=== PATIENT | female | born 1985 | race Caucasian/White ===

== ENCOUNTER → 2018-06-09 | Outpatient (REF) | payer BC ==
[~2018-06-09] MED LIST: FERR325T3 PO; IBUP80TA PO; LEVO25TA5 PO; PERCOCET PO; VITAPRTA PO
[2018-06-13 14:26] LABS: HPV HYBRID CAPTURE II Negative (Negative)
== END ==
LOC: M LAB REF 13:24
PROVIDERS: ATTEND Advanced Practice Midwife
DX: Z12.4 Encounter for screening for malignant neoplasm of cervix (principal)
CPT/HCPCS: 87624; G0123

== ENCOUNTER → 2018-06-21 | Outpatient (CLI) | payer BC, OTHER ==
--- NOTE | 2018-06-21 08:06 | REP ---
Transvaginal pelvic sonography: History: Infertility. Findings: Uterine dimensions are 7.5 x 4.2 x 4.3 cm. Uterus is somewhat retroverted. Endometrial echo 0.9 cm thick. A vaginal images demonstrate a hyperechoic area in the endometrium measuring 0.8 cm in greatest diameter raising question of endometrial polyp. No myometrial mass is seen. There is mild amount of fluid in the cul-de-sac. Right ovary measures 5.2 x 2.4 x 2.4 cm in overall dimension. There are no follicles in the right ovary measuring greater than a centimeter. There are 16 follicles in the right ovary ranging in size from 0.2-0.9 cm. The overall dimensions of the left ovary today are 5.3 x 1.8 x 2.2 cm. There are no follicles in the left ovary greater than 1 cm. There are 22 follicles in the left ovary ranging in size from 0.3-0.7 cm. Impression: Heterogeneous endometrium as above question endometrial nodule or polyp. Small amount of cul-de-sac fluid. Ovaries as above. Electronically Signed by Ron Guallpa MD 06/21/2018 07:59 A
[2018-06-21 10:16] LABS: ESTRADIOL 32.8 PG/ML; PROGESTERONE 0.4 NG/ML
== END ==
LOC: M RAD 06:41
PROVIDERS: ATTEND Obstetrics & Gynecology Reproductive Endocrinology
DX: E28.9 Ovarian dysfunction, unspecified (principal)

== ENCOUNTER → 2018-06-23 | Outpatient (CLI) | payer BC, OTHER ==
[2018-06-23 07:24] LABS: HCG, SERUM QUANTITATIVE < 1.0 MIU/ML
--- NOTE | 2018-06-23 07:52 | REP ---
Obstetric sonography: History: Infertility. Findings: Transvaginal pelvic ultrasound demonstrates a normal size retroverted uterus with dimensions of 6.9 x 4.3 x 4.8 cm. The endometrial stripe is 0.8 cm in thickness. There is a trace of fluid the cul-de-sac. No focal uterine mass is seen. The right ovary measures 5.4 x 2.5 x 3.0 cm. There is a 1.3 x 0.8 cm follicle in the right ovary and there are are 37 follicles in the right ovary ranging in size from 0.25 to 0.99 cm. Overall dimensions of the left ovary are 5.0 x 1.9 x 2.3 cm. There is one follicle over a centimeter in the left ovary measuring 1.0 x 0.5 cm. There are 33 follicles in the left ovary ranging in size from 0.22 to 0.80 cm. Electronically Signed by Ron Guallpa MD 06/23/2018 07:43 A
[2018-06-23 10:03] LABS: PROGESTERONE 0.21 NG/ML
[2018-06-23 10:04] LABS: FOLLICLE STIMULATING HORMONE 5.2 mIU/mL; LUTEINIZING HORMONE 6.6 mIU/mL
== END ==
LOC: M RAD 06:45
PROVIDERS: ATTEND Obstetrics & Gynecology Reproductive Endocrinology
DX: E28.9 Ovarian dysfunction, unspecified (principal); N85.4 Malposition of uterus

== ENCOUNTER → 2018-07-08 | Outpatient (CLI) | payer BC, OTHER ==
[2018-07-08 19:37] LABS: BASO % 0.8 % (0.0-1.0); EOS # 0.1 10^3/uL (0.0-0.50); EOS % 1.8 % (0.0-3.0); HEMATOCRIT 39.6 % (36.0-47.0); HEMOGLOBIN 12.8 g/dl (12.0-15.5); LYMPH # 2.5 10^3/uL (1.5-4.5); LYMPH % 48.8 % (24.0-44.0); MEAN CORPUSCULAR HEMOGLOBIN 29.1 pg (27.0-33.0); MEAN CORPUSCULAR HGB CONC 32.3 g/dl (32.0-36.5); MONO # 0.4 10^3/uL (0.0-0.8); MONO % 7.7 % (0.0-5.0); NEUTROPHILS # 2.1 10^3/uL (1.8-7.7); NEUTROPHILS % 40.7 % (36.0-66.0); PLATELET COUNT, AUTOMATED 265 10^3/uL (150-450); WHITE BLOOD COUNT 5.1 10^3/uL (4.0-10.0)
== END ==
LOC: M WUC 11:51
PROVIDERS: ATTEND Physician Assistant
DX: R59.0 Localized enlarged lymph nodes (principal)

== ENCOUNTER → 2018-08-26 | Outpatient (CLI) | payer BC, OTHER ==
[2018-08-26 18:34] LABS: BASO % 0.6 % (0.0-1.0); EOS % 0.6 % (0.0-3.0); HEMATOCRIT 35.4 % (36.0-47.0); LYMPH # 1.7 10^3/uL (1.5-4.5); LYMPH % 32.3 % (24.0-44.0); MEAN CORPUSCULAR HEMOGLOBIN 30.5 pg (27.0-33.0); MEAN CORPUSCULAR HGB CONC 33.9 g/dl (32.0-36.5); MEAN CORPUSCULAR VOLUME 89.8 fl (80.0-96.0); MONO # 0.4 10^3/uL (0.0-0.8); MONO % 7.1 % (0.0-5.0); NEUTROPHILS # 3.1 10^3/uL (1.8-7.7); NEUTROPHILS % 59.2 % (36.0-66.0); PLATELET COUNT, AUTOMATED 236 10^3/uL (150-450); RED BLOOD COUNT 3.94 10^6/uL (4.00-5.40); WHITE BLOOD COUNT 5.2 10^3/uL (4.0-10.0)
[2018-08-26 21:04] LABS: CHLAMYDIA DNA AMPLIFICATION NEGATIVE (NEGATIVE); GC DNA AMPLIFICATION NEGATIVE (NEGATIVE)
[2018-08-28 10:26] LABS: HEPATITIS C VIRUS ABY INDEX < 0.0 INDEX (<0.8); HIV 1&2 SCREEN CENTAUR NEGATIVE (NEGATIVE); RUBELLA IgG QUALITATIVE IMMUNE (IMMUNE)
== END ==
LOC: M WUC 10:32
PROVIDERS: ATTEND Specialist
DX: Z34.81 Encounter for supervision of other normal pregnancy, first trimester (principal); Z3A.01 Less than 8 weeks gestation of pregnancy

== ENCOUNTER → 2018-11-13 | Outpatient (CLI) | payer BC, OTHER ==
--- NOTE | 2018-11-13 12:15 | REP ---
Obstetric ultrasound for anatomy: There is a single intrauterine gestation. position is variable. motion is identified. The heart rate is 144 beats per minute. The placenta is anterior. There is no placenta previa or abruptio. The placenta is grade zero. The amniotic fluid volume subjectively is normal. The cervix measures 3.8 cm in length. Gestational age by today's ultrasound is 19 weeks 1 day/MICHAEL 04/08/2019. Gestational age by LMP is 19 weeks 0 days/MICHAEL 04/09/2019. weight is 277 grams/0 pounds, 9 ounces. This is the 53rd percentile for 19 weeks 0 days. The following anatomic structures are identified and are unremarkable: Cranium, choroid plexus, cavum septum pellucidum, cerebellum, facial profile, upper lip, lungs, four-chamber heart, right and left cardiac ventricular outflow tracts, diaphragm, stomach, cord insertion, three-vessel cord, kidneys, bladder, and upper lower extremities. Suboptimally demonstrated because of position is the spine. A followup study dedicated to the spine might be considered. Otherwise, there are no anomalies. Electronically Signed by Ebenezer Marie MD 11/13/2018 12:07 P
== END ==
LOC: M RAD 09:00
PROVIDERS: ATTEND Advanced Practice Midwife
DX: Z36.89 Encounter for other specified antenatal screening (principal); Z3A.19 19 weeks gestation of pregnancy

== ENCOUNTER → 2018-12-07 | Outpatient (CLI) | payer BC, OTHER ==
--- NOTE | 2018-12-07 17:00 | REP ---
OB ULTRASOUND: Real-time sonographic evaluation of the gravid uterus performed. There is a single living intrauterine gestation, estimated gestational age 22 weeks 3 days, EDC 04/09/2019. Today's measurements indicate appropriate growth. BPD 54 mm = 22 weeks 3 days, 52nd percentile HC 196 mm = 21 weeks 5 days, 32nd percentile AC 186 mm = 23 weeks 3 days, 71st percentile FL 40 mm = 22 weeks 6 days, 61st percentile HC/AC ratio 1.05 within normal range. Estimated weight 551 grams, 63rd percentile. Cervix is closed and measures 4.1 cm in length. heart rate 136 beats per minute. SEEN/GROSSLY UNREMARKABLE Lateral ventricles yes Posterior fossa yes Upper lip yes Four-chamber heart yes LVOT yes RVOT yes Stomach yes Cord insertion yes Three vessel cord yes Kidneys yes Bladder yes Spine yes position: Vertex. Placenta: Anterior and grade 0 with no previa or abruption. Amniotic fluid: Within normal limits. Electronically Signed by Ebenezer Wilkinson MD 12/07/2018 05:06 P
== END ==
LOC: M RAD 15:52
PROVIDERS: ATTEND Advanced Practice Midwife
DX: O09.522 Supervision of elderly multigravida, second trimester (principal); Z3A.22 22 weeks gestation of pregnancy

== ENCOUNTER → 2019-01-09 | Outpatient (CLI) | payer BC, OTHER ==
[2019-01-09 15:54] LABS: HEMOGLOBIN 11.5 g/dl (12.0-15.5); MEAN CORPUSCULAR HEMOGLOBIN 30.3 pg (27.0-33.0); MEAN CORPUSCULAR HGB CONC 32.9 g/dl (32.0-36.5); MEAN CORPUSCULAR VOLUME 92.3 fl (80.0-96.0); PLATELET COUNT, AUTOMATED 217 10^3/uL (150-450); RED BLOOD COUNT 3.79 10^6/uL (4.00-5.40); WHITE BLOOD COUNT 7.5 10^3/uL (4.0-10.0)
== END ==
LOC: M SMT 09:21
PROVIDERS: ATTEND Advanced Practice Midwife
DX: O09.522 Supervision of elderly multigravida, second trimester (principal)

== ENCOUNTER → 2019-03-15 | Outpatient (REF) | payer OTHER | LOC: M SFHCWAGY 16:44 | PROVIDERS: ATTEND Advanced Practice Midwife | DX: Z34.03 Encounter for supervision of normal first pregnancy, third trimester (principal) ==

== ENCOUNTER 2019-04-02 14:53 | Inpatient (IN) | payer BC, OTHER ==
[2019-04-02] VITALS (12 sets, daily range): BP systolic 99–119; BP diastolic 55–78
[~2019-04-02] VITALS: Ht 162.6 cm; Wt 85.8 kg
[2019-04-02] MEDS ORDERED: LACTATED RINGER'S 1000 ML IV STA (16:26)
[2019-04-02] MEDS ORDERED: LR 1,000 ML IV SCH (16:26)
[2019-04-02] MEDS ORDERED: OXYTOCIN DRIP 30 UNITS in IV 1 EA IV SCH (16:30)
[2019-04-02] MEDS ORDERED: PENICILLIN G POTASSIUM IV 5 MU in D5W MINI-BAG PLUS 100 ML IV STA (16:39)
--- NOTE | 2019-04-02 16:46 | HPEPDOC ---
Obstetrical History & Physical General Date of Admission Apr 02, 2019 at 14:53 Primary Care Physician: LEXA CARRANZA CNM History of Present Illness Patient is a 33-year-old female who is a at 39 weeks gestation with an MICHAEL of 04/09/19 based off of her first trimester ultrasound. She initiated care in her first trimester with AWP. Her has been complicated by a previous twin delivery with the first a vaginal delivery and the second a section for bradycardia. She desires for a TOLAC. She is also avanced maternal age. She declined aneuploidy screening. During this she has also had an unstable lie of fetus. She denies any vaginal bleeding, leaking of fluid or contractions. She reports active movement. Chief Complaint: Induction of labor, Other (TOLAC with unstable lie) Age: 33 : 2 Term: 1 Pre-term: 0 Abortions: 0 Livin Care Care: Good Care Dating Final EDC: Apr 09, 2019 Final EDC by: 1st trimester (US) EGA at Admission: 39 Antepartum Course Diagnos(e)s Prior section AMA PCOS Height (inches): 64 Pre- weight (lbs.): 153 Admission Weight (lbs.): 188 Change in Weight (lbs.): 35 Past Medical History Past Obstetrical History : Gestation: 38.1 Type of Delivery: Spontaneous Vaginal Del. 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 History: Other (Polycystic ovarian syndrome) Past Medical History Medical History varicella as a child and hypothyroidism Surgical History: section, Other (hysteroscopy and laparoscopy) Family History Significant Family History: No pertinent family hx Social History Marital Status: Family situation: Spouse/partner home * Smoker: non-smoker Alcohol: Denies Drugs: denies Abuse Violence Screening Have you been hit/kicked/slapp: No Have you been sexually assault: No Allergies Coded Allergies: No Known Allergies (Unverified , 10/19/14) Medications Scheduled Amoxicillin/Potassium Clav (Amox-Clav 875-125 mg Tablet) 1 Each Tablet, 1 TAB PO BID Multivit/Min/Pren/Fol Ac/Iron ( Vitamin Plus Low Iron) 1 Tab Tab, 1 TAB PO DAILY Physical Examination Physical Examination GENERAL: Alert and oriented times three. BREAST: . ABDOMEN: Gravid and non-tender to touch. FETUS: Is vertex (VTX) by sterile vaginal examination (SVE), fetus is vertex (VTX) by Ole. Cephalic by bedside sono. HEART RATE: Regular rate and rhythm. LUNGS: Clear to auscultation (CTA). EXTREMITIES: No edema. No clonus. Deep tendon reflexes (DTRs) +2. Vital Signs/I&O Vital Signs Date Time Temp Pulse Resp B/P (MAP) Pulse Ox O2 Delivery O2 Flow Rate FiO2 04/02/19 15:20 98.3 73 18 119/78 (92) Laboratory Data [facility] Laboratory Tests 2 04/02/19 15:04: Serology Scanned Report Hepatitis B Testing Urine Culture: No Growth Pertinent Laboratoy Data Blood Type: A+ RBC Antibody Screen: Negative HIV: Negative Hepatitis B: Negative Hepatitis C: Negative Rapid Plasma Reagin: Nonreactive Rubella: Immune Chlamydia/Gonorrhea: Negative Group B Streptococcus: Positive Glucose Tolerance Test: 90 Anatomy Ultrasound Ultrasound Date: Dec 07, 2018 Placenta Location: Anterior Normal Anatomy: Yes Placenta Previa: No Vaginal Examination Dilation: 1cm Effacement: 80% Station: -2 Cervical Consistency: Soft Cervical Position: Middle Presentation: Cephalic presentation Position: Vertex (occiput) (verified with bedside ultrasound) Assessment Heart Rate (FHR): 125 Variability: Moderate Accelerations: Positive Decelerations: None Tocometer Contractions: Yes Frequency: irregular (occasional) Multi-drug resistant Organism: No history of MDRO Assessment/Plan Assessment IUP at 39 weeks gestation unstable lie of fetus prior section GBS positive AMA Category I FHR tracing Plan Admit to L&D. Dr. Dasilva is aware that patient is in L&D and plan of care has been collaborated with him. OOB ad benita. Diet: clears. Group B Streptococcus positive. Start antibiotic per order. Labs and intravenous (IV) per unit protocol. Counseled on TOLAC and potential complications of TOLAC. Also counseled on Pitocin and suárez bulb for induction of labor. Lactated Ringers (LR): 125 cc/hr with start of IV Pitocin and Bolus of 800 mL prior to epidural. Anesthesia and neonatology consult as needed. Anticipate cervical ripening and cervical change. C-S as appropriate. LEXA CARRANZA CNM Apr 02, 2019 16:46
[2019-04-02] MEDS ORDERED: AMOX875T2 PO (16:52)
[2019-04-02 16:56] LABS: HEMATOCRIT 33.5 % (36.0-47.0); HEMOGLOBIN 11.4 g/dl (12.0-15.5); MEAN CORPUSCULAR HEMOGLOBIN 30.5 pg (27.0-33.0); MEAN CORPUSCULAR VOLUME 89.6 fl (80.0-96.0); PLATELET COUNT, AUTOMATED 225 10^3/uL (150-450); RED BLOOD COUNT 3.74 10^6/uL (4.00-5.40); WHITE BLOOD COUNT 6.5 10^3/uL (4.0-10.0)
[2019-04-02] MEDS ORDERED: AUGMENTIN 875 MG TAB PO ONE (19:00)
[2019-04-02] MEDS: PENICILLIN G POTASSIUM IV 2.5 MU in IV 1 EA IV SCH (21:28)
[2019-04-03] VITALS (23 sets, daily range): BP systolic 99–135; BP diastolic 53–83
[2019-04-03] MEDS: PENICILLIN G POTASSIUM IV 2.5 MU in IV 1 EA IV SCH ×3 (01:19→09:40)
--- NOTE | 2019-04-03 02:41 | IPNPDOC ---
Obstetrical Progress Note Date of Service Apr 03, 2019 Subjective Patient reports feeling contractions. She is considering an epidural or IV pain medication. Objective Vital Signs Date Time Temp Pulse Resp B/P (MAP) Pulse Ox O2 Delivery O2 Flow Rate FiO2 04/03/19 02:11 67 106/60 (75) 04/03/19 00:11 97.9 16 Assessment Heart Rate (FHR): 120 Variability: Moderate Accelerations: Positive Decelerations: None Heart Rate Tracing: Category I Tocometer Contractions: Yes Frequency: regular, every 2-2 min. Sterile Vaginal Examination Dilation: 4 cm (4-5) Effacement (%): 90% Station: -1 Cervical Consistency: Soft Cervical Position: Anterior Postion/Presentation: Cephalic presentation Assessment and Plan Age: 33 : 2 Term: 1 Pre-term: 0 Abortions: 0 Livin Weeks & Days 39.1 Status: Reassuring Group B Streptococcus: Positive Anticipate: Vaginal Delivery Additional Comments Cantu bulb is out. IV Pitocin is at 2 mu/min. LEXA CARRANZA CNM Apr 03, 2019 02:41
--- NOTE | 2019-04-03 05:41 | IPNPDOC ---
Obstetrical Progress Note Date of Service Apr 03, 2019 Subjective Patient reports feeling pressure. Objective Vital Signs Date Time Temp Pulse Resp B/P (MAP) Pulse Ox O2 Delivery O2 Flow Rate FiO2 04/03/19 02:11 67 106/60 (75) 04/03/19 00:11 97.9 16 Assessment Heart Rate (FHR): 130 Variability: Moderate Accelerations: Positive Decelerations: None Heart Rate Tracing: Category I Tocometer Contractions: Yes Frequency: regular Strength: palpated as moderate Sterile Vaginal Examination Dilation: 6 cm Effacement (%): 100% Station: -1 Cervical Position: Anterior Postion/Presentation: Cephalic presentation Assessment and Plan Age: 33 : 2 Term: 1 Pre-term: 0 Abortions: 0 Livin Status: Reassuring Group B Streptococcus: Positive Anticipate: Vaginal Delivery Additional Comments Dr. Dasilva is present and in department. LEXA CARRANZA CNM Apr 03, 2019 05:41
[2019-04-03] MEDS ORDERED: ONDANSETRON 4MG/2ML VIAL (J2405) IV SCH (06:00)
[2019-04-03] MEDS ORDERED: OXYTOCIN DRIP 30 UNITS in IV 1 EA IV SCH (12:12)
[2019-04-03] MEDS ORDERED: LR 1,000 ML IV SCH (12:12)
[2019-04-03] MEDS ORDERED: ACETAMINOPHEN TAB 650MG DOSE (2X325MG) PO PRN (12:15)
[2019-04-03] MEDS ORDERED: IBUPROFEN 800 MG TAB PO PRN (12:15)
[2019-04-03] MEDS ORDERED: ACETAMINOPHEN 500 MG TAB PO PRN (12:15)
[2019-04-03] MEDS ORDERED: MEASLES,MUMPS,RUBELLA VACCINE INJ (MMR-II) (90707) SC SCH (12:15)
[2019-04-03] MEDS ORDERED: IBUPROFEN 600 MG TAB PO PRN (12:15)
[2019-04-03] MEDS ORDERED: ONDANSETRON 4MG/2ML VIAL (J2405) IV PRN (12:15)
[2019-04-03] MEDS ORDERED: DIBUCAINE 1% OINTMENT 30GM TOP PRN (12:15)
[2019-04-03] MEDS ORDERED: RHOGAM 300 MCG (1500 IU) INJ (J2790) IM SCH (12:15)
[2019-04-03] MEDS ORDERED: PROMETHAZINE 25 MG TAB PO PRN (12:15)
[2019-04-03] MEDS ORDERED: DOCUSATE SODIUM 100 MG CAP PO PRN (21:00)
[2019-04-04 06:00] VITALS: BP 133/79
[2019-04-04] MEDS ORDERED: PRENATAL VITAMINS CHEWABLE TABLET PO SCH (09:00)
== END 2019-04-04 15:50 | disposition home or self-care (01) | DRG 560 ==
LOC: M LDI 14:53 → M OBS 04-03 14:45
PROVIDERS: ADMIT Advanced Practice Midwife; ATTEND Advanced Practice Midwife
PROC: 10E0XZZ Delivery of Products of Conception, External Approach (ICD-10-PCS; principal; 2019-04-03)
DX: O34.211 Maternal care for low transverse scar from previous cesarean delivery (principal); O09.521 Supervision of elderly multigravida, first trimester; O99.824 Streptococcus B carrier state complicating childbirth; Z37.0 Single live birth; Z3A.39 39 weeks gestation of pregnancy

== ENCOUNTER → 2020-10-08 | Outpatient (CLI) | payer BC, OTHER ==
[~2020-10-08] MED LIST changes: +AMOX875T2 PO
--- NOTE | 2020-10-09 00:41 | REP ---
INDICATION: PAIN COMPARISON: None. TECHNIQUE: AP, lateral, flexion/extension, bilateral oblique, and coned-down views. FINDINGS: Dextroconvex scoliosis noted in the frontal projection. Lateral views demonstrate normal alignment and lordosis. Vertebral bodies are intact. No acute fracture/compression injury or subluxation. Oblique views without spondylolysis or spondylolisthesis. Minimal endplate sclerosis and disc space narrowing at L5-S1 is suggested. IMPRESSION: Scoliosis and minimal focal degenerative change at L5-S1. <Electronically signed by Johan Elliott > 10/09/20 0038
== END ==
LOC: M WUC 15:20
PROVIDERS: ATTEND Physician Assistant
DX: M51.37 Other intervertebral disc degeneration, lumbosacral region (principal); M41.86 Other forms of scoliosis, lumbar region; M54.5 Low back pain

== ENCOUNTER → 2021-10-18 | Outpatient (CLI) | payer BC, OTHER | LOC: M RAD 13:58 | PROVIDERS: ATTEND Student in an Organized Health Care Education/Training Program | DX: M25.561 Pain in right knee (principal) ==

== ENCOUNTER → 2022-01-04 | Outpatient (CLI) | payer BC, OTHER ==
[2022-01-04 16:37] LABS: BASO % 0.4 % (0.0-1.0); EOS # 0.2 10^3/uL (0.0-0.5); EOS % 3.4 % (0.0-3.0); HEMATOCRIT 35.6 % (36.0-47.0); HEMOGLOBIN 11.8 g/dl (12.0-15.5); LYMPH # 2.3 10^3/uL (1.5-5.0); LYMPH % 41.8 % (24.0-44.0); MEAN CORPUSCULAR HEMOGLOBIN 28.8 pg (27.0-33.0); MEAN CORPUSCULAR HGB CONC 33.1 g/dl (32.0-36.5); MEAN CORPUSCULAR VOLUME 86.8 fl (80.0-96.0); MONO # 0.5 10^3/uL (0.0-0.8); MONO % 8.4 % (2.0-8.0); NEUTROPHILS # 2.6 10^3/uL (1.5-8.5); NEUTROPHILS % 45.8 % (36.0-66.0); PLATELET COUNT, AUTOMATED 302 10^3/uL (150-450); WHITE BLOOD COUNT 5.6 10^3/uL (4.0-10.0)
[2022-01-04 16:59] LABS: ALBUMIN 3.8 GM/DL (3.2-5.2); ALT/SGPT 31 U/L (12-78); BILIRUBIN,TOTAL 0.7 MG/DL (0.2-1.0); BLOOD UREA NITROGEN 17 MG/DL (7-18); CALCIUM LEVEL 9.5 MG/DL (8.5-10.1); CARBON DIOXIDE LEVEL 28 MEQ/L (21-32); CHLORIDE LEVEL 106 MEQ/L (98-107); FERRITIN 48 NG/ML (8-252); FREE T4 0.82 NG/DL (0.76-1.46); GLOMERULAR FILTRATION RATE > 60.0 (>60); GLUCOSE, FASTING 94 MG/DL (70-100); IRON (FE) 93 UG/DL (50-170); PERCENT SATURATION 28.8 % (13.2-45.0); POTASSIUM SERUM 4.1 MEQ/L (3.5-5.1); SODIUM LEVEL 140 MEQ/L (136-145); TOTAL IRON BINDING CAPACITY 323 UG/DL (250-450); TOTAL PROTEIN 6.9 GM/DL (6.4-8.2)
[2022-01-04 17:05] LABS: HEMOGLOBIN A1c 5.6 %
[2022-01-04 17:23] LABS: FOLLICLE STIMULATING HORMONE 6.2 mIU/mL; LUTEINIZING HORMONE 14.3 mIU/mL; VITAMIN B12 LEVEL 451 PG/ML (247-911)
== END ==
LOC: M WUC 13:38
PROVIDERS: ATTEND Physician Assistant
DX: E28.2 Polycystic ovarian syndrome (principal); D64.9 Anemia, unspecified

== ENCOUNTER → 2022-02-10 | Outpatient (REF) | payer OTHER | LOC: M PLALAB 16:05 | PROVIDERS: ATTEND Nurse Practitioner Family | DX: Z12.4 Encounter for screening for malignant neoplasm of cervix (principal) | CPT/HCPCS: 87624; G0123 ==

== ENCOUNTER → 2023-03-17 | Outpatient (REF) | payer OTHER, BC | LOC: M SFHCWAGY 10:28 | PROVIDERS: ATTEND Nurse Practitioner Family | DX: Z12.4 Encounter for screening for malignant neoplasm of cervix (principal) | CPT/HCPCS: 87624; G0123 ==

== ENCOUNTER → 2024-07-03 | Outpatient (REF) | payer OTHER, BC ==
[2024-07-06 15:52] LABS: HPV APTIMA Not Detected (Not Detected)
== END ==
LOC: M SFHCWAGY 17:54
PROVIDERS: ATTEND Advanced Practice Midwife
DX: Z12.4 Encounter for screening for malignant neoplasm of cervix (principal)
CPT/HCPCS: 87624; G0123

== ENCOUNTER → 2025-02-09 | Outpatient (CLI) | payer BC, OTHER ==
[2025-02-09 10:52] LABS: BASO # 0.0 10^3/uL (0.0-0.2); BASO % 0.7 % (0.0-1.0); EOS # 0.2 10^3/uL (0.0-0.5); EOS % 3.8 % (0.0-3.0); LYMPH # 1.9 10^3/uL (1.5-5.0); LYMPH % 33.6 % (24.0-44.0); MONO # 0.5 10^3/uL (0.0-0.8); MONO % 8.8 % (2.0-8.0); NEUTROPHILS # 2.9 10^3/uL (1.5-8.5); NEUTROPHILS % 52.7 % (36.0-66.0); PLATELET COUNT, AUTOMATED 291 10^3/uL (150-450)
[2025-02-09 11:08] LABS: ESTIMATED AVERAGE GLUCOSE 114.0 MG/DL (60-110)
[2025-02-09 11:21] LABS: ALT/SGPT 22 U/L (7.0-40); AST/SGOT 20 U/L (<34); CALCIUM LEVEL 9.4 MG/DL (8.5-10.1); CARBON DIOXIDE LEVEL 26 MMOL/L (20-31); CHLORIDE LEVEL 107 MMOL/L (98-107); CHOLESTEROL LEVEL 211 MG/DL (<200); CHOLESTEROL RISK RATIO 4.23 (<5); CREATININE FOR GFR 0.67 MG/DL (0.55-1.30); GLOMERULAR FILTRATION RATE > 90.0 (>58); LDL CHOLESTEROL 135.4 MG/DL (<100); NON-HDL-C 161.2 MG/DL; POTASSIUM SERUM 4.8 MMOL/L (3.5-5.1); SODIUM LEVEL 141 MMOL/L (136-145); TOTAL 25(OH) VITAMIN D 28.0 NG/ML (20.0-100.0); TRIGLYCERIDES LEVEL 129 MG/DL (<150)
[2025-02-09 11:22] LABS: LUTEINIZING HORMONE 9.6 mIU/ML; PROGESTERONE 0.28 NG/ML
[2025-02-09 11:23] LABS: FREE T4 0.99 NG/DL (0.89-1.76); TESTOSTERONE 27 NG/DL (14-76)
== END ==
LOC: M LAB 10:24
PROVIDERS: ATTEND Physician Assistant
DX: Z13.220 Encounter for screening for lipoid disorders (principal); Z13.29 Encounter for screening for other suspected endocrine disorder; E28.2 Polycystic ovarian syndrome; L71.8 Other rosacea